=== PATIENT | female | born 1985 | race Caucasian/White ===

== ENCOUNTER 2021-08-15 21:35 | Inpatient (IN) ==
[2021-08-15] MEDS ORDERED: LACTATED RINGERS 500 ML IV PRN (21:49)
[2021-08-15] MEDS ORDERED: ONDANSETRON 4 MG/2 ML VIAL IV PRN (21:49)
[2021-08-15] MEDS ORDERED: BUTORPHANOL 2 MG/ML VIAL IV PRN (21:49)
[2021-08-15 22:36] LABS: Basophils % 0.2 % (0.0-0.8); Eosinophils # 0.1 10*3/uL (0.0-0.87); Eosinophils % 0.3 % (0.00-10.9); Hematocrit 30.3 VOL% (35.7-47.0); Hemoglobin 9.4 GM/DL (12.0-16.0); Immature Granulocytes % 1.1 %; Immature Granulocytes Absolute 0.16 #; Lymphocytes # 3.3 10*3/uL (1.4-4.0); Lymphocytes % 22.4 % (21.3-54.2); Mean Corpuscular Volume 87.6 FL (87-102); Mean Platelet Volume 10.9 FL (9.6-12.0); Monocytes % 5.1 % (1.7-12.7); Neutrophils % 70.9 % (38.7-73.9); Platelet Count 272 T/CUMM (130-400); Red Blood Count 3.46 MC/CUMM (3.8-5.5); Red Cell Distribution Width 14.1 % (9.3-17.3); White Blood Count 14.8 T/CUMM (4-12)
[2021-08-15 22:57] LABS: Alanine Aminotransferase 13 U/L (13-56); Albumin 2.1 G/DL (3.4-5.0); Alkaline Phosphatase 172 U/L (45-117); Aspartate Amino Transferase 20 U/L (0-37); Bilirubin,Total < 0.39 MG/DL (0.20-1.00); Blood Urea Nitrogen 10 MG/DL (7-18); Calcium 9.3 MG/DL (8.5-10.1); Carbon Dioxide 26 MMOL/L (21-32); Estimated Glom Filtration Rate 154 ML/MIN; Glucose 86 MG/DL (74-106); Osmolality,Calculated 270.8 MOS/KG (273-304); Potassium 3.5 MMOL/L (3.5-5.1); Sodium 137 MMOL/L (136-145); Total Protein 6.5 G/DL (6.4-8.2)
[2021-08-15] MEDS: MEPERIDINE 50 MG/1 ML VIAL IV PRN (23:33)
[2021-08-16] MEDS ORDERED: INFLUENZA VIRUS VACCINE 0.5 ML SYRINGE IM ONE (00:56)
[2021-08-16] MEDS: MEPERIDINE 50 MG/1 ML VIAL IV PRN ×5 (02:01→19:52)
[2021-08-16] MEDS ORDERED: diphenhydrAMINE 50 MG/1 ML VIAL IV SCH (14:00)
[2021-08-16] MEDS: NICOTINE 14 MG/24 HR PATCH TRANSDERM SCH (14:24)
[2021-08-16] MEDS: diphenhydrAMINE 50 MG/1 ML VIAL IV PRN (16:41)
[2021-08-16 17:39] LABS: Barbiturates Screen,Urine Negative (Negative); Benzodiazepines Screen,Urine Negative (Negative); Cannabinoid Screen,Urine Negative (Negative); Opiate Screen,Urine Negative (Negative); Phencyclidine Screen,Urine Negative (Negative)
[2021-08-17] MEDS: diphenhydrAMINE 50 MG/1 ML VIAL IV PRN ×4 (00:05→22:50)
[2021-08-17] MEDS: MEPERIDINE 50 MG/1 ML VIAL IV PRN ×3 (02:24→19:36)
[2021-08-17] MEDS: LACTATED RINGERS 1,000 ML IV SCH ×3 (02:32→14:08)
[2021-08-17] MEDS ORDERED: OXYTOCIN/LR 20 UNIT/1,000 ML BAG IV SCH (04:30)
[2021-08-17] MEDS: NICOTINE 14 MG/24 HR PATCH TRANSDERM SCH (12:16)
[2021-08-18] MEDS: MEPERIDINE 50 MG/1 ML VIAL IV PRN ×2 (02:23→05:19)
[2021-08-18] MEDS: diphenhydrAMINE 50 MG/1 ML VIAL IV PRN (04:35)
[2021-08-18] MEDS ORDERED: FAMOTIDINE 20 MG/2 ML VIAL IV ONE (07:28)
[2021-08-18] MEDS ORDERED: ceFAZolin 3,000 MG in SYRINGE 1 EACH IV ONE ×2 (07:28→16:00)
[2021-08-18] MEDS ORDERED: CITRIC ACID/SODIUM CITRATE 30 ML UDCUP PO ONE (07:28)
[2021-08-18] MEDS ORDERED: ePHEDrine 50 MG/ML VIAL IV PRN (07:31)
[2021-08-18] MEDS ORDERED: LACTATED RINGERS 1,000 ML IV PRN (07:31)
[2021-08-18] MEDS ORDERED: PROMETHAZINE 25 MG/1 ML VIAL IM ONE (07:31)
[2021-08-18] MEDS ORDERED: ONDANSETRON 4 MG/2 ML VIAL IV ONE (07:31)
[2021-08-18 07:51] LABS: Basophils % 0.3 % (0.0-0.8); Eosinophils # 0.1 10*3/uL (0.0-0.87); Eosinophils % 0.4 % (0.00-10.9); Hematocrit 30.2 VOL% (35.7-47.0); Hemoglobin 9.6 GM/DL (12.0-16.0); Immature Granulocytes % 1.8 %; Immature Granulocytes Absolute 0.22 #; Lymphocytes # 2.4 10*3/uL (1.4-4.0); Lymphocytes % 19.8 % (21.3-54.2); Mean Corpuscular HGB Conc 31.8 GM/DL (32-36); Mean Corpuscular Volume 86.3 FL (87-102); Mean Platelet Volume 10.6 FL (9.6-12.0); Monocytes % 5.8 % (1.7-12.7); NRBC # 0.03 10*3/uL; Neutrophils % 71.9 % (38.7-73.9); Platelet Count 199 T/CUMM (130-400); Red Cell Distribution Width 14.2 % (9.3-17.3)
[2021-08-18] MEDS ORDERED: TRANEXAMIC ACID 1,000 MG/10 ML VIAL ONE (11:24)
[2021-08-18] MEDS ORDERED: miSOPROStoL 200 MCG TABLET ONE (11:24)
[2021-08-18] MEDS ORDERED: CARBOPROST TROMETHAMINE 250 MCG/ML AMP IM ONE ×2 (11:25→17:15)
[2021-08-18] MEDS ORDERED: METHYLERGONOVINE 0.2 MG/1 ML AMP ONE (11:25)
[2021-08-18] MEDS ORDERED: METOCLOPRAMIDE 10 MG/2 ML VIAL ONE ×2 (11:34→16:25)
[2021-08-18] MEDS ORDERED: ONDANSETRON 4 MG/2 ML VIAL ONE ×3 (11:34→16:25)
[2021-08-18] MEDS ORDERED: MIDAZOLAM 2 MG/2 ML VIAL ONE ×2 (11:34→16:26)
[2021-08-18] MEDS ORDERED: BUPIVACAINE SPINAL 0.75% 2 ML AMP SPINAL ONE (11:47)
[2021-08-18] MEDS: LACTATED RINGERS 1,000 ML IV SCH (13:48)
[2021-08-18] MEDS ORDERED: miSOPROStoL 200 MCG TABLET RECTAL ONE (17:00)
[2021-08-18] MEDS ORDERED: OXYTOCIN 10 UNIT/ML VIAL ONE (17:18)
[2021-08-18] MEDS ORDERED: LACTATED RINGERS 1,000 ML IV ONE (17:25)
[2021-08-18 17:33] LABS: Cord Arterial Blood HCO3 18.3 MMOL/L
[2021-08-18 17:36] LABS: Cord Venous Blood HCO3 20.2 MMOL/L; Cord Venous Blood PCO2 67.7 MMHG; Cord Venous Blood PO2 < 17
[2021-08-18] MEDS ORDERED: BUPIVACAINE MPF 0.5% /EPI 30 ML VIAL ONE (17:51)
[2021-08-18] MEDS ORDERED: KETOROLAC 30 MG/1 ML VIAL ONE (17:51)
[2021-08-18 18:13] LABS: Bacteria,Urine Occasional /HPF (Few); Bilirubin,Urine Negative (Negative); Blood, Urine Negative (Negative); Glucose,Urine (UA) Negative (Negative); Ketones,Urine 5 mg/dL (Negative); Mucus,Urine Occasional /LPF (Occasional); Nitrite,Urine Negative (Negative); Protein,Urine Negative; RBC,Urine 2 /HPF (0-4); Squamous Epithelial Cell,Urine Occasional /HPF (0-10); Urine Appearance CLEAR (Clear); Urine Color Yellow (Yellow); Urine Specific Gravity 1.019 (1.001-1.035); Urine Urobilinogen < 2.0 EU/DL (0.2-1.0)
[2021-08-18] MEDS ORDERED: OXYTOCIN/LR 20 UNIT/1,000 ML BAG IV ONE ×2 (19:00→22:48)
[2021-08-18] MEDS: FUROSEMIDE 40 MG/4 ML VIAL IV SCH (20:45)
[2021-08-18] MEDS ORDERED: HYDROmorphone 2 MG/1 ML VIAL IV ONE (21:05)
[2021-08-18] MEDS: ACETAMINOPHEN 500 MG TABLET PO SCH (21:17)
[2021-08-18] MEDS ORDERED: WITCH HAZEL PADS 100/JAR TOP PRN (22:48)
[2021-08-18] MEDS ORDERED: oxyCODONE/ACETAMINOPHEN 5-325 MG TABLET PO PRN (22:48)
[2021-08-18] MEDS ORDERED: ACETAMINOPHEN 325 MG TABLET PO PRN (22:48)
[2021-08-18] MEDS ORDERED: HYDROCORTISONE 2.5% RECTAL CREAM 30 GM TUBE TOP PRN (22:48)
[2021-08-18] MEDS ORDERED: BENZOCAINE 20%/MENTHOL 0.5% SPRAY 56 GM CAN TOP PRN (22:48)
[2021-08-18] MEDS ORDERED: ONDANSETRON 4 MG/2 ML VIAL IV PRN (22:48)
[2021-08-18] MEDS ORDERED: RHO(D) IMMUNE GLOBULIN 300 MCG SYRINGE IM ONE (22:48)
[2021-08-18] MEDS ORDERED: MEASLES/MUMPS/RUBELLA VACCINE 0.5 ML VIAL SUBCUT ONE (22:48)
[2021-08-18] MEDS ORDERED: BISACODYL 10 MG SUPP RECTAL PRN (22:48)
[2021-08-18] MEDS ORDERED: DIPH/TET/ACEL PERT BOOSTER VACCINE 0.5 ML VIAL IM ONE (22:48)
[2021-08-18] MEDS ORDERED: LANOLIN 50% CREAM 0.3 OZ TUBE TOP PRN (22:48)
[2021-08-18] MEDS: KETOROLAC 30 MG/1 ML VIAL IV SCH (23:20)
[2021-08-19] MEDS: DOCUSATE SODIUM 100 MG CAPSULE PO SCH ×3 (00:41→22:23)
[2021-08-19] MEDS: oxyCODONE/ACETAMINOPHEN 5-325 MG TABLET PO PRN ×4 (00:48→18:27)
[2021-08-19] MEDS: KETOROLAC 30 MG/1 ML VIAL IV SCH ×2 (05:34→10:55)
[2021-08-19] MEDS: ACETAMINOPHEN 500 MG TABLET PO SCH ×2 (06:00→08:56)
[2021-08-19 07:04] LABS: Basophils % 0.2 % (0.0-0.8); Eosinophils % 0.1 % (0.00-10.9); Hematocrit 24.1 VOL% (35.7-47.0); Hemoglobin 7.7 GM/DL (12.0-16.0); Immature Granulocytes % 1.2 %; Immature Granulocytes Absolute 0.16 #; Lymphocytes # 2.5 10*3/uL (1.4-4.0); Lymphocytes % 18.1 % (21.3-54.2); Mean Corpuscular Volume 87.6 FL (87-102); Mean Platelet Volume 11.8 FL (9.6-12.0); Monocytes % 6.7 % (1.7-12.7); NRBC # 0.02 10*3/uL; Neutrophils % 73.7 % (38.7-73.9); Platelet Count 157 T/CUMM (130-400); Red Blood Count 2.75 MC/CUMM (3.8-5.5); White Blood Count 13.5 T/CUMM (4-12)
[2021-08-19] MEDS ORDERED: FUROSEMIDE 40 MG/4 ML VIAL IV SCH (09:00)
[2021-08-19] MEDS: FUROSEMIDE 40 MG/4 ML VIAL IV SCH (09:24)
[2021-08-19] MEDS: FLUoxetine 10 MG CAPSULE PO SCH (09:29)
[2021-08-19] MEDS: cloNIDine 0.1 MG TABLET PO SCH (09:29)
[2021-08-19] MEDS: IBUPROFEN 800 MG TABLET PO PRN ×3 (09:59→22:33)
[2021-08-19] MEDS: NICOTINE 14 MG/24 HR PATCH TRANSDERM SCH (14:49)
[2021-08-19] MEDS ORDERED: FERROUS SULFATE 325 MG TABLET PO SCH (21:00)
[2021-08-20] MEDS: oxyCODONE/ACETAMINOPHEN 5-325 MG TABLET PO PRN ×3 (00:33→12:14)
[2021-08-20] MEDS: IBUPROFEN 800 MG TABLET PO PRN ×2 (04:07→10:17)
[2021-08-20] MEDS: IRON (CARBONYL)/VIT C/B12/FA TABLET PO SCH ×2 (07:53→08:51)
[2021-08-20] MEDS: FUROSEMIDE 40 MG/4 ML VIAL IV SCH (07:53)
[2021-08-20] MEDS: DOCUSATE SODIUM 100 MG CAPSULE PO SCH ×2 (07:53→08:51)
[2021-08-20] MEDS: FLUoxetine 10 MG CAPSULE PO SCH ×2 (07:55→08:52)
[2021-08-20] MEDS: cloNIDine 0.1 MG TABLET PO SCH ×2 (07:55→08:51)
[2021-08-20 08:45] LABS: Basophils % 0.2 % (0.0-0.8); Eosinophils % 0.3 % (0.00-10.9); Hemoglobin 8.8 GM/DL (12.0-16.0); Immature Granulocytes % 2.8 %; Immature Granulocytes Absolute 0.37 #; Lymphocytes # 2.1 10*3/uL (1.4-4.0); Lymphocytes % 15.8 % (21.3-54.2); Mean Corpuscular HGB Conc 31.4 GM/DL (32-36); Mean Corpuscular Volume 88.9 FL (87-102); Monocytes % 5.1 % (1.7-12.7); NRBC # 0.03 10*3/uL; Neutrophils % 75.8 % (38.7-73.9); Platelet Count 223 T/CUMM (130-400); Red Blood Count 3.15 MC/CUMM (3.8-5.5); Red Cell Distribution Width 14.3 % (9.3-17.3); White Blood Count 13.4 T/CUMM (4-12)
[2021-08-20] MEDS: NICOTINE 14 MG/24 HR PATCH TRANSDERM SCH (10:46)
[2021-08-20 11:23] VITALS: BP 138/79
== END 2021-08-20 13:00 | disposition home or self-care (01) | DRG 540 ==
LOC: N.LDOUT 21:35 → N.LD 21:38 → N.OB 08-18 22:35
PROVIDERS: ADMIT Specialist; ATTEND Specialist
PROC: LDCSECT (ICD-10-PCS; 2021-08-18 12:00)